=== PATIENT | female | born 1970 | race Caucasian/White ===

== ENCOUNTER 2019-06-08 11:00 | Day surgery (SDC) | payer BC ==
[~2019-06-08] VITALS: Ht 157.5 cm; Wt 125.4 kg
[2019-06-08] MEDS ORDERED: LACTATED RINGERS 1,000 ML IV SCH (13:08)
[2019-06-08 13:21] VITALS: BP 156/88
[2019-06-08 13:29] LABS: HCG UR SG 1.007 (1.003-1.030)
[2019-06-08] MEDS ORDERED: LEXAPRO (13:30)
[2019-06-08] MEDS ORDERED: PROPOFOL 10 MG/ML, 20ML ONE (13:38)
[2019-06-08] MEDS ORDERED: LABETALOL 5MG/ML, 20ML IV PRN (14:00)
[2019-06-08] MEDS ORDERED: FENTANYL PF 100 MCG/2ML IV PRN (14:00)
[2019-06-08] MEDS ORDERED: ONDANSETRON 2MG/ML, 2ML IV PRN (14:00)
[2019-06-08] MEDS ORDERED: MIDAZOLAM 1 MG/ML, 2ML IV PRN (14:00)
[2019-06-08] MEDS ORDERED: DIAZEPAM 5 MG/ML, 2ML IVPush PRN (14:00)
[2019-06-08] MEDS ORDERED: ONDANSETRON ODT 8 MG PO PRN (14:00)
[2019-06-08] MEDS ORDERED: DIPHENHYDRAMINE 50 MG/ML, 1ML IVPush PRN (14:00)
== END 2019-06-08 15:15 | disposition home or self-care (01) ==
LOC: OUT 11:00
PROVIDERS: ATTEND Internal Medicine
DX: K21.9 Gastro-esophageal reflux disease without esophagitis (principal); D12.2 Benign neoplasm of ascending colon; K20.9 Esophagitis, unspecified; K44.9 Diaphragmatic hernia without obstruction or gangrene; K57.30 Diverticulosis of large intestine without perforation or abscess without bleeding; K64.8 Other hemorrhoids; E66.01 Morbid (severe) obesity due to excess calories
CPT/HCPCS: 43239; 45385; 81025; 88305; 88342; J2704; J7120